=== PATIENT | male | born 2000 | race Caucasian/White ===

== ENCOUNTER 2020-09-17 16:17 | Emergency (ER) | payer BC ==
--- NOTE | 2020-09-17 17:11 | EDM.PDOC ---
ED HPI GENERAL MEDICAL PROBLEM - General Stated Complaint: HEAD WOUND Time Seen by Provider: 09/17/20 16:25 Source of Information: Reports: Patient, Family History Limitations: Reports: No Limitations - History of Present Illness INITIAL COMMENTS - FREE TEXT/NARRATIVE: c/o forehead lac pt is bear hunting in [facility] in December, he was target practice shooting today, has lac in his forehead from gun scope last TdaP was 11-13-14 here with father ED ROS GENERAL - Review of Systems Review Of Systems: See Below Constitutional: Reports: No Symptoms HEENT: Reports: No Symptoms Respiratory: Reports: No Symptoms Cardiovascular: Reports: No Symptoms Endocrine: Reports: No Symptoms GI/Abdominal: Reports: No Symptoms : Reports: No Symptoms Musculoskeletal: Reports: No Symptoms Skin: Reports: Wound Neurological: Reports: No Symptoms Psychiatric: Reports: No Symptoms Hematologic/Lymphatic: Reports: No Symptoms Immunologic: Reports: No Symptoms ED EXAM, SKIN/RASH Exam: See Below Exam Limited By: No Limitations General Appearance: Alert, WD/WN, No Apparent Distress Nose: Normal Inspection Throat/Mouth: Normal Inspection, Normal Voice, No Airway Compromise Neck: Normal Inspection, Supple, Non-Tender, Full Range of Motion Respiratory/Chest: No Respiratory Distress Cardiovascular: Regular Rate, Rhythm Extremities: Normal Inspection, Normal Range of Motion Neurological: Alert, Oriented, CN II-XII Intact, Normal Cognition, Normal Gait, No Motor/Sensory Deficits Psychiatric: Normal Affect, Normal Mood Skin: Other (there is a 3 cm curvilinear lac of the central forehead with a gap of 4 mm, 1% lido with epi with #30 needle local used with complete analgesia, no fb's, closed with 4-0 Ethilon x 6, good apposition of margins) Course - Re-Assessments/Exams Free Text/Narrative Re-Assessment/Exam: 09/17/20 17:11 will have a small scar when it heals Departure - Departure Time of Disposition: 17:05 Disposition: Home, Self-Care 01 Condition: Good Clinical Impression: Laceration of forehead - Discharge Information *PRESCRIPTION DRUG MONITORING PROGRAM REVIEWED*: Not Applicable *COPY OF PRESCRIPTION DRUG MONITORING REPORT IN PATIENT CLAUDIO: Not Applicable Instructions: Laceration Care, Adult Referrals: PCP,None [Ordering Only Provider] - Additional Instructions: Keep clean and dry and covered with a dressing. May get wet after 24 hours. Do not immerse in water. See your physician in 5 days to remove sutures. While infection is unlikely, see a physician the same day for any increase in redness, swelling, pain, warmth, fever or drainage.
== END 2020-09-17 17:25 | disposition home or self-care (01) ==
LOC: FB.ED 16:17
DX: S01.81XA Laceration without foreign body of other part of head, initial encounter (principal); W22.8XXA Striking against or struck by other objects, initial encounter
CPT/HCPCS: 12002; 12013; 99282; 99282-25

== ENCOUNTER 2021-06-16 19:15 | Emergency (ER) | payer BC ==
--- NOTE | 2021-06-16 19:45 | EDM.PDOC ---
ED HPI GENERAL MEDICAL PROBLEM - General Stated Complaint: LACERATION ON L EYELID Time Seen by Provider: 06/16/21 19:35 Source of Information: Reports: Patient History Limitations: Reports: No Limitations - History of Present Illness INITIAL COMMENTS - FREE TEXT/NARRATIVE: Patient head butted with another player while playing basketball and sustained a 3 cm superficial laceration on the left eyelid. There is no LOC, denies any headache, nausea,vomiting. No double or blurry vision. - Related Data Allergies Allergy/AdvReac Type Severity Reaction Status Date / Time peanut Allergy Airway Verified 06/16/21 19:58 Tightness Home Meds: Home Meds Mirtazapine 30 mg PO DAILY 09/17/20 [History] Past Medical History HEENT History: Reports: Allergic Rhinitis Psychiatric History: Reports: Anxiety, Panic Attack, Suicidal Ideation, Other (See Below) Other Psychiatric History: He says that this is controlled now and not a problem Social & Family History - Caffeine Use Caffeine Use: Reports: None ED ROS GENERAL - Review of Systems Review Of Systems: See Below Constitutional: Reports: No Symptoms HEENT: Reports: No Symptoms Respiratory: Reports: No Symptoms Cardiovascular: Reports: No Symptoms Endocrine: Reports: No Symptoms GI/Abdominal: Reports: No Symptoms : Reports: No Symptoms Musculoskeletal: Reports: No Symptoms Skin: Reports: No Symptoms Neurological: Reports: No Symptoms Psychiatric: Reports: No Symptoms ED EXAM, HEAD INJURY - Physical Exam Exam: See Below Exam Limited By: No Limitations General Appearance: Alert, No Apparent Distress Head: Atraumatic, Normocephalic Ears: Normal External Exam, Normal Canal Nose: Normal Inspection, Normal Mucousa, No Blood Throat/Mouth: Normal Inspection, Normal Lips, Normal Teeth, Normal Oropharynx, Normal Voice Neck: Non-Tender, Full Range of Motion, Normal Alignment Respiratory: No Respiratory Distress, Lungs Clear, Normal Breath Sounds, No Accessory Muscle Use, Chest Non-Tender Cardiovascular: Normal Peripheral Pulses, Regular Rate, Rhythm, No Edema, No Gallop, No JVD, No Murmur, No Rub GI/Abdominal Exam: Normal Bowel Sounds, Soft, Non-Tender, No Organomegaly, No Distention, No Abnormal Bruit Back Exam: Normal Inspection, Full Range of Motion Extremities: Normal Inspection, Normal Range of Motion, Non-Tender, No Pedal Edema, Normal Capillary Refill 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, No Motor/Sensory Deficits, Alert, Normal Mood/Affect, Oriented x 3 ED LACERATION/WOUND & RONEN PROC - Laceration/Wound Repair Left Face Lac/wound length in cm: 3 Appearance: Superficial, Clean Skin Prep: Chlorhexidine (Hibiciens) Closed with: Dermabond Course - Vital Signs Text/Narrative:: UTD with immunization Last Recorded V/S: Last Vital Signs Temp 37.1 C 06/16/21 19:23 Pulse 85 06/16/21 19:23 Resp 18 06/16/21 19:23 BP 115/63 06/16/21 19:23 Pulse Ox 96 06/16/21 19:23 Departure - Departure Time of Disposition: 20:00 Disposition: Home, Self-Care 01 Condition: Good Clinical Impression: Laceration - Discharge Information Instructions: Tissue Adhesive Wound Care, [id number] Referrals: Gabriella Sosa NP [Primary Care Provider] - Forms: ED Department Discharge Additional Instructions: Please read discharge instructions on laceration Keep the wound dry for 3 days No need to apply an antibiotic ointment, the glue is medicated The glue will eventually fall off Follow up as needed Sepsis Event Note (ED) - Focused Exam Vital Signs: Vital Signs Temp Pulse Resp BP Pulse Ox 06/16/21 19:23 37.1 C 85 18 115/63 96
== END 2021-06-16 20:06 | disposition home or self-care (01) ==
LOC: SUPCPDRO 19:15 → FB.ED 19:15
DX: S01.112A Laceration without foreign body of left eyelid and periocular area, initial encounter (principal); Z91.010 Allergy to peanuts; W55.32XA Struck by other hoof stock, initial encounter; Y93.67 Activity, basketball
CPT/HCPCS: 12013; 99282-25